=== PATIENT | male | born 1950 | race Caucasian/White ===

== ENCOUNTER 2018-02-19 10:21 | Outpatient (CLI) | payer MEDICARE, BC, SELFPAY ==
[2018-02-19 10:36] LABS: Abs Immature Grans 0.01 k/cumm (0.0-0.09); Absolute Basophil Count 0.02 k/cumm (0.0-0.2); Absolute Lymphocyte Count 2.28 k/cumm (1.2-3.4); Absolute Monocyte Count 0.78 k/cumm (0.11-0.7); Absolute Neutrophil Count 3.55 k/cumm (1.2-6.7); Basophils % 0.3; Eosinophils % 2.9; HCT 43.6 % (40.0-50.0); Immature Grans % 0.1; Lymphocytes % 33.3; Mean Corp. HGB Concentration 34.4 g/dL (32.0-36.0); Mean Platelet Volume 11.7 fL (8.0-11.0); Monocytes % 11.4; Platelet Count 158 x1000/uL (130-400); RBC 4.54 m/cumm (4.50-6.00); White Blood Cell Count 6.84 k/cumm (4.4-10.8)
[2018-02-19 11:06] LABS: ALT 33 U/L (12-78); AST 22 U/L (15-37); Albumin 3.2 g/dL (3.4-5.0); Alkaline Phosphatase 70 U/L (46-116); Anion Gap 6.4 mmol/L (3-11); BUN 13 mg/dL (7-18); Bilirubin, Total 0.7 mg/dL (0.2-1.0); CO2 28.6 mmol/L (21.0-32.0); CREATININE 1.01 mg/dL (0.70-1.30); Calcium 8.1 mg/dL (8.5-10.1); Chloride 104 mmol/L (98-107); Glucose 92 mg/dL (70-100); LDH 197 U/L (85-227); Potassium 4.1 mmol/L (3.5-5.1); Sodium 139 mmol/L (136-145); TSH 4.67 uIU/mL (0.358-3.74); Total Protein 6.4 g/dL (6.4-8.2)
== END 2018-02-19 10:22 ==
PROVIDERS: Visit Provider Internal Medicine
DX: E07.89 Other specified disorders of thyroid (principal); Z85.72 Personal history of non-Hodgkin lymphomas
CPT/HCPCS: 36415; 80053; 83615; 84443; 85025

== ENCOUNTER 2018-04-21 10:01 | Outpatient (CLI) | payer MEDICARE, BC, SELFPAY ==
[2018-04-21 10:49] LABS: TSH 3.65 uIU/mL (0.358-3.74)
== END 2018-04-21 10:21 ==
PROVIDERS: Visit Provider Nurse Practitioner Adult Health
DX: E03.9 Hypothyroidism, unspecified (principal); C85.80 Other specified types of non-Hodgkin lymphoma, unspecified site
CPT/HCPCS: 36415; 84443

== ENCOUNTER 2019-04-27 10:49 | Outpatient (CLI) | payer MEDICARE, BC, SELFPAY ==
[2019-04-27 11:24] LABS: Abs Immature Grans 0.01 k/cumm (0.0-0.09); HCT 43.6 % (40.0-50.0); Mean Corp. HGB Concentration 34.4 g/dL (32.0-36.0); Mean Corpuscular Volume 95.8 fL (80-95); Mean Platelet Volume 11.4 fL (8.0-11.0); Platelet Count 188 x1000/uL (130-400); RBC 4.55 m/cumm (4.50-6.00)
[2019-04-27 11:41] LABS: ALT 36 U/L (16-63); AST 24 U/L (15-37); Albumin 3.1 g/dL (3.4-5.0); Alkaline Phosphatase 61 U/L (46-116); Anion Gap 4.2 mmol/L (3-11); BUN 10 mg/dL (7-18); Bilirubin, Total 0.6 mg/dL (0.2-1.0); CO2 28.8 mmol/L (21.0-32.0); CREATININE 0.92 mg/dL (0.70-1.30); Calcium 8.1 mg/dL (8.5-10.1); Chloride 104 mmol/L (98-107); Glucose 100 mg/dL (70-100); LDH 223 U/L (85-227); Potassium 4.4 mmol/L (3.5-5.1); Sodium 137 mmol/L (136-145); TSH 3.78 uIU/mL (0.36-3.74); Total Protein 6.2 g/dL (6.4-8.2)
[2019-04-27 11:43] LABS: Absolute Lymphocyte Count 2.07 k/cumm (1.2-3.4); Absolute Monocyte Count 1.24 k/cumm (0.11-0.7); Absolute Neutrophil Count 3.24 k/cumm (1.2-6.7); Atypical Lymphocytes % 4
[2019-04-27 11:44] LABS: Absolute Basophil Count 0.07 k/cumm (0.0-0.2); Absolute Eosinophil Count 0.28 k/cumm (0.0-0.7); Diff Comment Manual Differential; RBC Morphology Normal
== END 2019-04-27 11:09 ==
PROVIDERS: Visit Provider Nurse Practitioner Family
DX: C83.31 Diffuse large B-cell lymphoma, lymph nodes of head, face, and neck (principal); E03.2 Hypothyroidism due to medicaments and other exogenous substances
CPT/HCPCS: 36415; 80053; 83615; 84443; 85025

== ENCOUNTER 2019-12-15 02:37 | Outpatient (CLI) | payer MEDICARE, BC, SELFPAY ==
[2019-12-15 08:57] LABS: Abs Immature Grans 0.01 k/cumm (0.0-0.09); Absolute Basophil Count 0.02 k/cumm (0.0-0.2); Absolute Eosinophil Count 0.17 k/cumm (0.0-0.7); Absolute Lymphocyte Count 2.04 k/cumm (1.2-3.4); Absolute Monocyte Count 0.72 k/cumm (0.11-0.7); Basophils % 0.3; Eosinophils % 2.7; HCT 43.1 % (40.0-50.0); HGB 14.8 g/dL (13.5-17.5); Immature Grans % 0.2 %; Lymphocytes % 32.1; Mean Corp. HGB Concentration 34.3 g/dL (32.0-36.0); Mean Corpuscular Hemoglobin 33.2 pg (27.0-33.0); Mean Corpuscular Volume 96.6 fL (80-95); Mean Platelet Volume 12.1 fL (8.0-11.0); Monocytes % 11.3; Neutrophils % 53.4; Platelet Count 187 x1000/uL (130-400); RBC 4.46 m/cumm (4.50-6.00); RBC Distribution Width 12.7 % (11.8-14.1); White Blood Cell Count 6.36 k/cumm (4.4-10.8)
[2019-12-15 09:18] LABS: ALT 36 U/L (16-63); AST 27 U/L (15-37); Albumin 3.2 g/dL (3.4-5.0); Alkaline Phosphatase 64 U/L (46-116); Anion Gap 3.1 mmol/L (3-11); BUN 12 mg/dL (7-18); Bilirubin, Total 0.6 mg/dL (0.2-1.0); CO2 29.9 mmol/L (21.0-32.0); CREATININE 0.95 mg/dL (0.70-1.30); Calcium 8.4 mg/dL (8.5-10.1); Chloride 105 mmol/L (98-107); Glucose 94 mg/dL (74-106); LDH 211 U/L (85-227); Potassium 4.3 mmol/L (3.5-5.1); Sodium 138 mmol/L (136-145); TSH 2.11 uIU/mL (0.36-3.74); Total Protein 6.3 g/dL (6.4-8.2)
== END 2019-12-15 02:57 ==
PROVIDERS: Visit Provider Internal Medicine
DX: C83.31 Diffuse large B-cell lymphoma, lymph nodes of head, face, and neck (principal); E03.9 Hypothyroidism, unspecified
CPT/HCPCS: 36415; 80053; 83615; 84443; 85025

== ENCOUNTER 2021-01-03 02:15 | Outpatient (CLI) | payer MEDICARE, BC, SELFPAY ==
[2021-01-03 14:40] LABS: Abs Immature Grans 0.03 10^3/uL (0.0-0.06); Absolute Basophil Count 0.06 10^3/uL (0.0-0.2); Absolute Eosinophil Count 0.28 10^3/uL (0.0-0.7); Absolute Lymphocyte Count 3.05 10^3/uL (1.2-3.4); Absolute Monocyte Count 1.07 10^3/uL (0.1-0.8); Absolute Neutrophil Count 4.99 10^3/uL (1.2-6.7); Basophils % 0.6; HCT 42.6 % (40.0-50.0); HGB 14.6 g/dL (13.5-17.5); Immature Grans % 0.3; Lymphocytes % 32.2; MCH 33.1 pg (27.0-33.0); MCHC 34.3 % (32.0-36.0); MCV 96.6 fL (80-95); MPV 11.4 fL (8.0-11.0); Monocytes % 11.3; Neutrophils % 52.6; Nucleated RBC 0 %; Platelet Count 181 10^3/uL (130-400); RBC 4.41 10^6/uL (4.36-5.78); RDW 12.5 % (11.8-14.1); RDW-SD 44.9 fL; WBC 9.48 10^3/uL (4.4-10.8)
[2021-01-03 16:11] LABS: ALT 35 U/L (16-63); AST 26 U/L (15-37); Albumin 3.4 g/dL (3.4-5.0); Alkaline Phosphatase 73 U/L (46-116); Anion Gap 8.7 mmol/L (3-11); BUN 17 mg/dL (7-18); Bilirubin, Total 0.5 mg/dL (0.2-1.0); CO2 27.3 mmol/L (21.0-32.0); CREATININE 0.8 mg/dL (0.70-1.30); Calcium 8.5 mg/dL (8.5-10.1); Chloride 104 mmol/L (98-107); Glucose 111 mg/dL (74-106); Potassium 4.4 mmol/L (3.5-5.1); Sodium 140 mmol/L (136-145); TSH 2.39 uIU/mL (0.36-3.74); Total Protein 5.9 g/dL (6.4-8.2)
== END 2021-01-03 02:16 | disposition home or self-care (01) ==
LOC: LBO 02:15
PROVIDERS: Visit Provider Internal Medicine
DX: E03.2 Hypothyroidism due to medicaments and other exogenous substances (principal); Z85.72 Personal history of non-Hodgkin lymphomas
CPT/HCPCS: 36415; 80053; 84439; 84443; 85025

== ENCOUNTER 2021-12-19 03:58 | Outpatient (CLI) | payer MEDICARE, BC, SELFPAY ==
[2021-12-19 13:51] LABS: Abs Immature Grans 0.03 10^3/uL (0.0-0.06); Absolute Basophil Count 0.07 10^3/uL (0.0-0.2); Absolute Lymphocyte Count 3.73 10^3/uL (1.2-3.4); Absolute Neutrophil Count 5.17 10^3/uL (1.2-6.7); Basophils % 0.7; Eosinophils % 1.9; HCT 41.3 % (40.0-50.0); HGB 14.1 g/dL (13.5-17.5); Immature Grans % 0.3; Lymphocytes % 36.2; MCH 33.1 pg (27.0-33.0); MCHC 34.1 % (32.0-36.0); MCV 97 fL (80-95); MPV 11.4 fL (8.0-11.0); Monocytes % 10.7; Neutrophils % 50.2; Platelet Count 193 10^3/uL (130-400); RBC 4.26 10^6/uL (4.36-5.78); RDW 12.5 % (11.8-14.1); RDW-SD 44.5 fL
[2021-12-19 14:07] LABS: ALT 40 U/L (16-63); AST 37 U/L (15-37); Albumin 3.2 g/dL (3.4-5.0); Alkaline Phosphatase 71 U/L (46-116); Anion Gap 6.9 mmol/L (3-11); BUN 19 mg/dL (7-18); Bilirubin, Total 0.5 mg/dL (0.2-1.0); CO2 29.1 mmol/L (21.0-32.0); Calcium 8.4 mg/dL (8.5-10.1); Chloride 104 mmol/L (98-107); Glucose 96 mg/dL (74-106); Sodium 140 mmol/L (136-145); Total Protein 6.2 g/dL (6.4-8.2)
== END 2021-12-19 03:59 | disposition home or self-care (01) ==
LOC: LBO 03:59
PROVIDERS: Nurse Practitioner Adult Health; Visit Provider Internal Medicine
DX: E03.2 Hypothyroidism due to medicaments and other exogenous substances (principal)
CPT/HCPCS: 36415; 80053; 84439; 84443; 85025

== ENCOUNTER 2022-12-13 02:25 | Outpatient (CLI) | payer MEDICARE, BC, SELFPAY ==
[2022-12-13 16:15] LABS: Abs Immature Grans 0.03 10^3/uL (0.0-0.06); Absolute Basophil Count 0.03 10^3/uL (0.0-0.2); Absolute Eosinophil Count 0.15 10^3/uL (0.0-0.7); Absolute Lymphocyte Count 3.34 10^3/uL (1.2-3.4); Absolute Monocyte Count 0.98 10^3/uL (0.1-0.8); Absolute Neutrophil Count 4.85 10^3/uL (1.2-6.7); Basophils % 0.3; Eosinophils % 1.6; HCT 36.4 % (40.0-50.0); HGB 13.5 g/dL (13.5-17.5); Immature Grans % 0.3; Lymphocytes % 35.6; MCH 37.1 pg (27.0-33.0); MCHC 37.1 % (32.0-36.0); MCV 100 fL (80-95); MPV 11.6 fL (8.0-11.0); Monocytes % 10.4; Neutrophils % 51.8; Platelet Count 187 10^3/uL (130-400); RBC 3.64 10^6/uL (4.36-5.78); RDW 14.4 % (11.8-14.1); RDW-SD 44.2 fL; WBC 9.38 10^3/uL (4.4-10.8)
[2022-12-13 16:45] LABS: ALT 40 U/L (16-63); AST 30 U/L (15-37); Albumin 3.3 g/dL (3.4-5.0); Alkaline Phosphatase 69 U/L (46-116); BUN 15 mg/dL (7-18); Bilirubin, Total 0.6 mg/dL (0.2-1.0); CREATININE 1.2 mg/dL (0.70-1.30); Calcium 8.5 mg/dL (8.5-10.1); Chloride 106 mmol/L (98-107); Estimated GFR 63.46 (mL/min/1.73m2); FREE T4 0.96 ng/dL (0.76-1.46); Glucose 98 mg/dL (74-106); Potassium 4.2 mmol/L (3.5-5.1); Sodium 140 mmol/L (136-145); Total Protein 6.2 g/dL (6.4-8.2)
== END 2022-12-13 02:26 | disposition home or self-care (01) ==
LOC: LBO 02:25
PROVIDERS: Visit Provider Internal Medicine
DX: E03.2 Hypothyroidism due to medicaments and other exogenous substances (principal); C83.31 Diffuse large B-cell lymphoma, lymph nodes of head, face, and neck
CPT/HCPCS: 36415; 80053; 84439; 84443; 85025

== ENCOUNTER 2023-09-15 05:26 | Outpatient (CLI) | payer MEDICARE, BC, SELFPAY ==
[2023-09-15 10:29] LABS: Abs Immature Grans 0.02 10^3/uL (0.0-0.06); Absolute Basophil Count 0.04 10^3/uL (0.0-0.2); Absolute Eosinophil Count 0.08 10^3/uL (0.0-0.7); Absolute Lymphocyte Count 2.63 10^3/uL (1.2-3.4); Absolute Monocyte Count 0.81 10^3/uL (0.1-0.8); Absolute Neutrophil Count 3.76 10^3/uL (1.2-6.7); Basophils % 0.5; Eosinophils % 1.1; HCT 41.3 % (40.0-50.0); HGB 14.3 g/dL (13.5-17.5); Immature Grans % 0.3; Lymphocytes % 35.8; MCH 33.4 pg (27.0-33.0); MCHC 34.6 % (32.0-36.0); MCV 97 fL (80-95); MPV 11.6 fL (8.0-11.0); Neutrophils % 51.3; Platelet Count 192 10^3/uL (130-400); RBC 4.28 10^6/uL (4.36-5.78); RDW 12.5 % (11.8-14.1); RDW-SD 43.6 fL; WBC 7.34 10^3/uL (4.4-10.8)
[2023-09-15 11:06] LABS: ALT 40 U/L (16-63); AST 32 U/L (15-37); Albumin 3.3 g/dL (3.4-5.0); Alkaline Phosphatase 64 U/L (46-116); Anion Gap 5.6 mmol/L (3-11); BUN 17 mg/dL (7-18); Bilirubin, Total 0.7 mg/dL (0.2-1.0); CO2 29.4 mmol/L (21.0-32.0); Calcium 8.7 mg/dL (8.5-10.1); Chloride 103 mmol/L (98-107); Estimated GFR 78.49 (mL/min/1.73m2); FREE T4 1.02 ng/dL (0.76-1.46); Glucose 85 mg/dL (74-106); Potassium 4.2 mmol/L (3.5-5.1); Sodium 138 mmol/L (136-145); TSH 2.41 uIU/Ml (0.36-3.74); Total Protein 6.3 g/dL (6.4-8.2)
== END 2023-09-15 05:27 | disposition home or self-care (01) ==
LOC: LBO 05:26
PROVIDERS: Visit Provider Nurse Practitioner
DX: E03.2 Hypothyroidism due to medicaments and other exogenous substances (principal); C83.31 Diffuse large B-cell lymphoma, lymph nodes of head, face, and neck
CPT/HCPCS: 36415; 80053; 84439; 84443; 85025

== ENCOUNTER 2023-12-23 05:10 | Outpatient (CLI) | payer MEDICARE, BC, SELFPAY ==
[2023-12-23 12:06] LABS: Abs Immature Grans 0.04 10^3/uL (0.0-0.06); Absolute Basophil Count 0.04 10^3/uL (0.0-0.2); Absolute Neutrophil Count 3.74 10^3/uL (1.2-6.7); Basophils % 0.5 %; Eosinophils % 2.5 %; HCT 42.3 % (40.0-50.0); HGB 14.6 g/dL (13.5-17.5); Immature Grans % 0.5 %; Lymphocytes % 39.9 %; MCH 32.4 pg (27.0-33.0); MCHC 34.5 % (32.0-36.0); MCV 94 fL (80-95); MPV 11.6 fL (8.0-11.0); Neutrophils % 46.6 %; Platelet Count 202 10^3/uL (130-400); RDW 12.6 % (11.8-14.1); WBC 8.02 10^3/uL (4.4-10.8)
[2023-12-23 12:49] LABS: ALT 46 U/L (16-63); AST 30 U/L (15-37); Albumin 3.4 g/dL (3.4-5.0); Alkaline Phosphatase 66 U/L (46-116); Anion Gap 6.3 mmol/L (3-11); BUN 14 mg/dL (7-18); Bilirubin, Total 0.7 mg/dL (0.2-1.0); CO2 28.7 mmol/L (21.0-32.0); CREATININE 0.9 mg/dL (0.70-1.30); Calcium 8.5 mg/dL (8.5-10.1); Chloride 103 mmol/L (98-107); Estimated GFR 89.07 (mL/min/1.73m2); FREE T4 0.97 ng/dL (0.76-1.46); Glucose 98 mg/dL (74-106); Potassium 4.4 mmol/L (3.5-5.1); Sodium 138 mmol/L (136-145); TSH 2.89 uIU/Ml (0.36-3.74); Total Protein 6.5 g/dL (6.4-8.2)
== END 2023-12-23 05:11 | disposition home or self-care (01) ==
PROVIDERS: Visit Provider Nurse Practitioner
DX: E03.2 Hypothyroidism due to medicaments and other exogenous substances (principal)
CPT/HCPCS: 36415; 80053; 84439; 84443; 85025

== ENCOUNTER 2024-11-18 00:53 | Outpatient (CLI) | payer MEDICARE, BC, SELFPAY ==
[2024-11-18] MEDS: Normal Saline - Diluent 50 ML VIAL IJ (09:55)
[2024-11-18] MEDS: Omnipaque 350 MG/ML 500 ML BTL-Imaging package 100 ML IJ (09:59)
--- NOTE | 2024-11-18 10:03 | DI.CT_ITS ---
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 COMPARISON: CT CT CHEST W CONTRAST from 07/15/[address] NECK SOFT TISSUE W CONTRAST (GENERIC) from 07/15/2024 TECHNIQUE: FINDINGS: CT SOFT TISSUES NECK WITH: VISUALIZED PARANASAL SINUSES: There is again noted polypoid mucosal thickening throughout the nasal f camryn, bilateral ethmoid air cells and sphenoid sinuses. There is surgical defect again noted in the medial wall of the right maxillary sinus and there is a small fluid level again noted in the right ma xillary sinus. Periosteal thickening of the lateral wall the right maxillary sinus is again noted. Left maxillary sinus remains clear and without fluid. NASOPHARYNX: Unremarkable ORODENTAL: No obvious soft tissue mass in the tongue and remainder of the oral cavity. OROPHARYNX: Unremarkable. No masses evident. HYPOPHARYNX: Unremarkable. Valleculae and epiglottis and aryepiglottic folds appear normal. VOCAL CORDS: Unremarkable. No masses evident. Subglottic airway appears unremarkable. THYROID GLAND: Unremarkable. Normal size and no obvious nodules. SALIVARY GLANDS: Unremarkable. No significant findings in the parotid and submandibular glands. LYMPH NODES: There is no adenopathy evident in the neck and supraclavicular regions. OTHER: Degenerative changes in the right TM joint again noted. CT CHEST WITH: LUNGS: The previously described 8 mm noncalcified fissure adjacent nodule in the right upper lobe aga in remains stable. No new significant pulmonary nodules. Tiny benign granulomas are again noted. N o infiltrates nor pleural effusions. MEDIASTINUM: No new significant hilar nor mediastinal adenopathy. Calcified left hilar and subcarina l lymph nodes are again noted related to previous granulomatous disease. Visualized thyroid gland un remarkable. CARDIAC: Heart size upper normal. No pericardial effusion. Caliber of the thoracic aorta is upper n ormal. No dissection. OSSEOUS: No significant osseous lesions. No fractures. IMPRESSION: 1. No evidence of metastatic disease in the chest. No acute intrathoracic findings 2. No evidence of mass nor lymphadenopathy in the neck. The described primary oral cavity malignanc y is not able to be seen by CT scan. 3. 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 There is als o again noted a surgical defect in the medial wall the right maxillary sinus and there is again noted a small fluid level in the right maxillary sinus. RADIATION DOSE DELIVERED: 483.81mGy.cm Total DLP DATA REPOSITORY: All CT scans at this facility are submitted to the National Radiology Data Registry (NRDR) Dose Index Registry (DIR) with the [employer] ([employer]). RADIATION OPTIMIZATION: All CT scans at this facility use at least one of these dose optimization te chniques: automated exposure control; mA and/or kV adjustment per patient size (includes targeted exa ms where dose is matched to clinical indication); or iterative reconstruction.
== END 2024-11-18 01:13 ==
PROVIDERS: Visit Provider Otolaryngology Otolaryngology/Facial Plastic Surgery
DX: C02.9 Malignant neoplasm of tongue, unspecified (principal); K13.21 Leukoplakia of oral mucosa, including tongue
CPT/HCPCS: 70491; 71260; 82565

== ENCOUNTER 2025-01-20 02:11 | Outpatient (CLI) | payer MEDICARE, BC, SELFPAY ==
[2025-01-20 10:35] LABS: Abs Immature Grans 0.02 10^3/uL (0.0-0.06); HCT 42.2 % (40.0-50.0); HGB 14.5 g/dL (13.5-17.5); Immature Grans % 0.3 %; MCH 32.7 pg (27.0-33.0); MCHC 34.4 % (32.0-36.0); MCV 95 fL (80-95); MPV 11.3 fL (8.0-11.0); Platelet Count 210 10^3/uL (130-400); RBC 4.44 10^6/uL (4.36-5.78); RDW 12.5 % (11.8-14.1); RDW-SD 43.9 fL; WBC 7.89 10^3/uL (4.4-10.8)
[2025-01-20 12:19] LABS: ALT 40 U/L (16-63); AST 28 U/L (15-37); Albumin 3.3 g/dL (3.4-5.0); Alkaline Phosphatase 67 U/L (46-116); Anion Gap 6.7 mmol/L (3-11); BUN 14 mg/dL (7-18); Bilirubin, Total 0.8 mg/dL (0.2-1.0); CO2 28.3 mmol/L (21.0-32.0); Calcium 8.5 mg/dL (8.5-10.1); Chloride 102 mmol/L (98-107); Estimated GFR 91.72 (mL/min/1.73m2); Glucose 92 mg/dL (74-106); LDH 225 U/L (85-227); Potassium 4.5 mmol/L (3.5-5.1); Sodium 137 mmol/L (136-145); TSH 2.11 uIU/mL (0.36-3.74); Total Protein 6.2 g/dL (6.4-8.2)
== END 2025-01-20 02:12 | disposition home or self-care (01) ==
PROVIDERS: Visit Provider Nurse Practitioner
DX: E03.2 Hypothyroidism due to medicaments and other exogenous substances (principal); C83.31 Diffuse large B-cell lymphoma, lymph nodes of head, face, and neck; C43.62 Malignant melanoma of left upper limb, including shoulder
CPT/HCPCS: 36415; 80053; 83615; 84439; 84443; 85025